=== PATIENT | female | born 1945 | race Caucasian/White ===

== ENCOUNTER 2016-11-10 08:48 | Inpatient (IN) | payer MEDICARE, OTHER ==
[2016-11-10] VITALS (15 sets, daily range): BP systolic 86–113; BP diastolic 42–65; PULSE 55–80; RESP 14–20; O2SAT 94–100
[~2016-11-10] VITALS: Ht 162.6 cm; Wt 89.9 kg
[2016-11-10] MEDS: Lactated Ringer's 1,000 ML IV SCH ×2 (05:00→09:30)
--- NOTE | 2016-11-10 07:29 | PCM.ORTHOP ---
Orthopedic Operative Report Date of Service: Nov 10, 2016 Pre Operative Diagnosis Left shoulder arthritis, pseudoparalysis, rotator cuff tear, biceps tendinitis Post Operative Diagnosis Same Procedure Left reverse total shoulder arthroplasty, open biceps tenodesis Surgeon Surgeon: Hesham Lubin MD Assistants: Geovanny Ferrer Indication for Procedure Left shoulder arthritis, pseudoparalysis Findings Per Dictation Details of Procedure Implant:[employer] Reverse fracture system: size 6 CaP coated humeral stem , smal glenoid baseplate, size 3 humeral insert, size 36+4 mm head, 36+4 glenosphere, central non-locking screw size 6.5X15mm, peripheral locking screw 36 mm, peripheral locking screw 30mm Patient Status: Patient was extubated and taken to recovery room in stable condition. Indications: Taya Kidd is a 72-year-old male right hand dominant with left shoulder pain with pseudoparalysis and glenohumeral arthritis. The patient was offered conservative treatments versus surgical intervention given the severity of the injury and the patient opted for surgery. A clear explanation was given to the patient regarding the condition present, and the available conservative and surgical options. It was emphasized that the risks and benefits of surgery include but are not limited to infection, wound healing problems, damage to adjacent structures such as nerves, blood vessels and tendons, custodial disability and pain, arthritis, hypersensitivity, deep vein thrombosis, pulmonary embolism, broken hardware, failure of surgery, need for further procedures at time of surgery or later, cast related problems, loss of limb or life. The patient was given an explanation and the patient voiced understanding of what to expect after the procedure or surgery, the limitations in activities of daily living, the likely duration for post operative recovery and the instructions that are to be followed. At the end the patient was invited to seek clarification or ask further questions but there were none. The patient voiced understanding of the entire consultation. Description of Procedure: Patient was taken to operating room and transferred to operating table in supine position. Time out was performed with both anesthesia and orthopaedics faculty present to confirm details of case to be performed. After time out performed, patient placed under general anesthesia and endotracheal tube secured into place. Once endotracheal tube secured, the patient was placed into the modified beach-chair position at about 40 degrees of flexion. Patient position was again checked to ensure all bony prominences adequately padded. The left arm was prepped and draped in the usual sterile fashion to the level of the neck. A standard deltopectoral incision was made beginning immediately above the coracoid process and extending distally and laterally. The deltoid muscle was split through the interval being carefully not to release any deltoid along the clavicle or humerus. The proximal one-third of the pectoralis major muscle was incised off the humerus for better exposure. The supraspinatus and infraspinatus muscles were intact and still attached to the fractured greater tuberosity. The subscapularis was intact and also still attached to the fractured lesser tuberosity. It was incised through the tendinous portion just medial to the lesser tuberosity and tagged with 2-0 Fiberwire. The arm was externally rotated to expose the humeral head while the anterior humeral circumflex vessels ("3 sisters") were identified, ligated and then cut protecting the axillary nerve throughout inferior and medial to the vessels. The long head of the biceps was identified along the bicipital groove, incised at its origin and tagged for later tenodesis to the pectoralis major A airline pilot hole was then made with a 4 mm drill through the humeral head along the axis of the humeral shaft just lateral to the head's articular surface and just posterior to the bicipital groove. The 6 mm trochar pointed reamer was then inserted with continued circumferential reaming in 1 mm increments until light cortical contact was achieved with appropriate reamer. The intramedullary resection guide was assembled and the version control jimbo was placed to allow for 30 degrees retroversion. The neck cut was verified with a bat wing. Two threaded Steinmann pins were placed in the resection guide to secure the block to bone and the reamer and guide boom were removed prior to resecting the humeral head with the oscillating saw. We started broaching sequentially and ended with the 6 mm broach which solidly fit in the canal and fully seated on the humerus. The broach cover was then used to protect the humerus while attention was turned to the glenoid. Any remaining labrum was removed from the glenoid along with surrounding osteophytes. The glenoid sizer was centered on the glenoid and a 3.2 mm Steinmann pin was inserted with a 10 degree inferior tilt with solid bone purchase. The glenoid was then reamed with the cannulated base plate reamer over the top of the Steinmann pin until a small bone shelf was evident circumferentially. The cannulated trial glenoid baseplate was placed and fully seated. The glenoid baseplate implant was impacted and fully seated. The 6.5 mm central screw was then inserted following removal of the Steinmann with good compression. The surrounding peripheral screws were then drilled with a 2.7 mm drill through the threaded locking guides and then placed. The glenosphere trial was placed and tested with a good fit. The glenosphere implant was then tamped in place with appropriate offset. The standard humeral tray/bearing were placed and a trial reduction was performed. The patient achieved 80 degrees of external/internal rotation, 110 degrees of abduction, 45 degrees extension and 120 degrees of forward flexion with complete stability. The trail components were removed and the wound was copiously irrigated with 3 liters of normal saline. The stem was inserted followed by impaction of the humeral tray/ bearing. The implant was reduced and once again range of motion was found to be 80 degrees of external/internal rotation, 110 degrees of abduction, 45 degrees extension and 120 degrees of forward flexion with complete stability. The wound was again irrigated. The subscapularis was repaired with drill holes in the humerus prior to implantation of the stem with #2 Fiberwire through previously made bone tunnels. The long head of biceps was tenodesed to the pectoralis major. The deltoid interval was closed with 0 vicryl followed by 2-0 vicryl subcutaneous closure and then stratofix stitches for the skin. Transexamic acid was administered and a local anesthetic cocktail into the skin. Sterile dressings were applied along with a shoulder immobilizer and abduction pillow. The patient was then awoken from anesthesia and extubated, his neurovascular status was intact when checked in PACU. Pt tolerated procedure well and there was no complications. Nonweightbearing to affected upper extremity. Please leave sling on at all times. You may remove sling 3 times a day to move the elbow wrist and fingers. Do not move your shoulder. PROM only, IR to body, ER to 0 degrees, FF to 90 degrees, ABD to 0 degrees. Keep your arm at neutral, NO external rotation of the arm, no resisted IR of the arm. Please keep the affected extremity elevated when possible. You may use ice and/or heat as needed for comfort. Follow-up in 2 weeks with me with 2-view xrays and for suture removal and Steri -Strip application. Follow-up with me at 6 weeks. You will have pain medications , medication for constipation and aspirin 81 qdaily X 2 weeks. Grafts, Implants: Implants-See Implant Record Complications There were no periprocedural complications identified. Condition Stable Anesthetic Administered: GA Catheters: None Output, Estimated Blood Loss: 100 Blood Admin during surgery: No Surgical Cast or Splint: Shoulder Immobilizer Surgical Specimen Removed: No Specimen sent to Pathology: No copies to: Hesham Lubin MD, Christopher L MD Nov 10, 2016 07:29
[~2016-11-10 08:48] MED LIST: ADAL40KI SQ; Bupivacaine Liposome 1.3% 20 mL Inj INFILTRATE ONE; Clindamycin 900 mg/50 mL D5W IV ONE; Gentamicin 40 mg/mL 2 mL Inj IRRIGATION ONE; HYDR25TA4 PO; Hip/Knee Infiltration Cocktail IM ONE; LIP40 PO; LISI-567 PO; MELO-253 PO; OMEP20TA24 PO; PARO40TA3 PO
--- NOTE | 2016-11-10 09:37 | PCM.HPANE ---
Patient Data Surgeon Admitting Provider: Attending Provider:Hesham Lubin MD Primary Care Physician:Omer Nathan DO Other Provider:[facility] Reason for Visit Left Shoulder Arthritis Ht/WT & BMI Height (Feet): 5 Height (Inches): 5.5 Weight (Kilograms): 91.354 Body Mass Index 33.00 Allergies Coded Allergies: Penicillins (Verified Allergy, Severe, THROAT SWELLING, HIVES, 11/05/16) tetracycline (Verified Adverse Reaction, Severe, LIGHT SENSITIVE, 11/05/16) Past Anesthesia History Anesthesia History: Denies:: Anesthesia Reactions, Malignant Hyperthermia Diabetes History Hx Diabetes?: No MRSA MRSA: No Medications Hypertension Medication: Yes (HCTZ,LISINOPRIL) Reported Medications Omeprazole Magnesium (Prilosec Otc)20 Mg Tablet.dr20 Mg PO DAILY #1 PKG Ref 0 11/05/16 Paroxetine 40 Mg Asgklk74 Mg PO HS 30 Days Ref 0 11/05/16 Meloxicam 15 Mg Rpkdhs16 Mg PO DAILY 30 Days Ref 0 11/05/16 Lisinopril 20 Mg Wgfybi82 Mg PO DAILY 30 Days Ref 0 11/05/16 Hydrochlorothiazide 25 Mg Nvkupl10 Mg PO DAILY 30 Days Ref 0 11/05/16 Adalimumab (Humira)40 Mg/0.8 Ml Kit40 Mg SQ Q 2 WEEKS 11/05/16 Atorvastatin (Lipitor)40 Mg Gabhxe25 Mg PO DAILY Ref 0 11/05/16 History History of ENT Problems?: Yes HEENT History: Denies:: Abnormal Airway Cataracts Difficult Intubation Dysphagia Glaucoma Hearing Problem Sinus Problem TMJ Denture Type: None Teeth Condition: Within Normal Limits Other HEENT Pertinent History: HX OF FACIAL (LIPS,NARES,UPPER AIRWAY), RT ARM FRAN[place] 2009 [place] @ [facility] Hx of Heart Problems?: Yes Cardiovascular History: Positive for:: Hypertension (HYPERLIPIDEMIA) Denies:: Heart Murmur Hx of Respiratory Problem?: No Respiratory History: Denies:: Use of C-PAP Machine Hx Neurologic Problems?: Yes Other Neurological Pertinent: C/OF INSOMNIA Hx of GI Problems?: Yes Hx of Problems?: No Female Hx: Positive for:: Problems with Breasts? (S/P BREAST AUGMENTATION) Denies:: Currently (S/P C/S X2) Skin History: Positive for:: History Skin Disorders? (C/OF DRY SKIN, PSORIASIS (ON BIOLOGIC)) Denies:: Pressure Ulcers Hx Musculoskeletal Problems?: Yes Musculoskeletal History: Positive for:: Musculoskeletal Trauma (INTERNAL DERANGEMENT LT SHOULDER=CURRENT PROBLEM) Osteoarthritis (KNEE S/P INJECTIONS) Hx of Psycho/Social Problems?: Yes Psycho Social History: Positive for:: Hx Depression Hx Surgeries?: Yes (C/S X2,RPR RUPT ACHILLES TENDON,BREAST AUGMENTATION) Hx Any Other Health Problems?: Yes Other History: Positive for:: Hospitalization (FRANCO) Denies:: Cancer Endocrine Disease Thyroid Disease Hx Diabetes: No Hx Alcohol Use: YesAlcoholic Drinks Per Day: 3.5OZ/WEEKHx Substance Use: No Have You Smoked inLast 12 mo: No Stop/Bang Treated for Sleep Apnea?: No Do You Have a CPAP Machine?: No S-Snoring: Do You Snore Loudly: No T-Tired: feel tired, fatigued: Yes O-Obsered: Observed not breath: No P-Blood Pressure: treated: Yes B- Body Mass Index > 35 kg/m2: No A- Age over 50: Yes N- Neck Large Circumference: No G- Gender Male: No RAKESH Total Score: 3 RAKESH Risk Assessment: Low Risk, <3 Yes Risk Assessment Category Category 1A: Patient has history of documented sleep apnea, and HAS NOT received any narcotic, sedative or anesthesia administration during this stay. Category 1B: Patient has history of documented sleep apnea, and HAS received any narcotic , sedative or anesthesia administration during this stay Category 2: Patient has SUSPECTED Obstructive Sleep Apnea, and HAS received any narcotic , sedative or anesthesia administration during this stay. Category 3: Patient has SUSPECTED Obstructive Sleep Apnea and HAS NOT received narcotic, sedative or anesthesia administration during this stay. Category 4: Outpatient in Procedural Areas with known sleep apnea or who screen positive for High Risk via the STOP/BANG questionnaire. Exam Exam General Appearance: Oriented X3 HEENT/AIRWAY: MP 2 Lungs: Normal Air Movement Heart: Regular Rate/Rhythm Plan Impression Patient chart reviewed, patient interviewed and anesthestic plan with risks, benefits, and alternatives discussed, and informed consent obtained. ASA Physical Status: ASA2 Mod Systemic Disease Anesthetic Plan: GA, Regional Block Bene/Risks/Altern/Consents: Yes HP Complete Prior to Induction: Yes Donovan Lee MD Nov 10, 2016 09:37
[2016-11-10] MEDS: 0.9% Sodium Chloride 1,000 ML IV SCH ×2 (10:06→22:36)
[2016-11-10] MEDS ORDERED: Sodium Biphos-Phos 133 mL Enema RECTAL PRN (10:10)
[2016-11-10] MEDS ORDERED: Magnesium Hydroxide 10 mL Oral Concentration PO PRN (10:10)
[2016-11-10] MEDS ORDERED: diphenhydrAMINE 25 mg Capsule PO PRN (10:10)
[2016-11-10] MEDS ORDERED: Polyethylene Glycol (PEG) 17 Gm Powder PO PRN (10:10)
[2016-11-10] MEDS ORDERED: Bacitracin 50,000 unit Inj ONE (10:25)
[2016-11-10] MEDS ORDERED: Bupivacaine Liposome 1.3% 20 mL Inj ONE (10:26)
[2016-11-10] MEDS ORDERED: 0.9% Sodium Chloride 200 ML ONE (10:37)
[2016-11-10] MEDS ORDERED: Tranexamic Acid 100 mg/mL 10 mL Inj ONE (10:37)
[2016-11-10] MEDS ORDERED: Bacitracin 50,000 unit Inj IRRIGATION ONE (11:37)
[2016-11-10] MEDS ORDERED: Gentamicin 40 mg/mL 2 mL Inj INJ ONE (11:37)
[2016-11-10] MEDS ORDERED: 0.9% Sodium Chloride 10 mL Inj INFILTRATE ONE (12:31)
[2016-11-10] MEDS ORDERED: Lactated Ringer's 500 ML IV PRN (12:58)
[2016-11-10] MEDS ORDERED: Lactated Ringer's 1,000 ML IV SCH (12:58)
[2016-11-10] MEDS ORDERED: Phenylephrine 10,000 mCg/mL Inj IVPUSH PRN (13:00)
[2016-11-10] MEDS ORDERED: Labetalol 5 mg/mL 4 mL Inj IV PRN (13:00)
[2016-11-10] MEDS ORDERED: Atropine 0.4 mg/mL Inj IVPUSH PRN (13:00)
[2016-11-10] MEDS ORDERED: Dexamethasone 4 mg/mL Inj IVPUSH PRN (13:00)
[2016-11-10] MEDS ORDERED: HYDROmorphone 1 mg/mL Inj IVPUSH PRN (13:00)
[2016-11-10] MEDS ORDERED: EPHEDrine Sulfate 50 mg/mL Inj IVPUSH PRN (13:00)
[2016-11-10] MEDS ORDERED: fentaNYL-PF 50 mCg/mL 2 mL Inj IVPUSH PRN (13:00)
[2016-11-10] MEDS ORDERED: Ondansetron 2 mg/mL 2 mL Inj IVPUSH PRN (13:00)
[2016-11-10] MEDS ORDERED: MetoCLOpramide 5 mg/mL 2 mL Inj IVPUSH PRN (13:00)
[2016-11-10] MEDS ORDERED: hydrALAZINE 20 mg/mL Inj IVPUSH PRN (13:00)
[2016-11-10] MEDS: Ondansetron 2 mg/mL 2 mL Inj IVPUSH PRN (13:06)
[2016-11-10] MEDS: Ketorolac 15 mg/mL Inj IVPUSH PRN ×2 (13:06→19:14)
--- NOTE | 2016-11-10 14:07 | DRSVH ---
PROCEDURE: X-RAY LEFT SHOULDER, MINIMUM TWO VIEWS ([id number]) INDICATIONS: s/p left reverse TSA TECHNIQUE: 2 views of the shoulder were acquired. COMPARISON: None. FINDINGS: Bones: There is a left shoulder reverse polarity arthroplasty. There is expected alignment. No fract ures or dislocations. No suspicious bony lesions. Visualized ribs appear intact. Soft tissues: No suspicious soft tissue calcifications. Possible retrocardiac opacity IMPRESSION: Expected alignment a left shoulder arthroplasty. Consolidative retrocardiac opacity possibly aspiration/atelectasis versus pneumonia. Please correlate clinically and if needed further evaluation with dedicated chest radiographs could be performed Dictated by: Regan Melo M.D. on 11/10/2016 at 14:04 Approved by: Regan Melo M.D. on 11/10/2016 at 14:06
--- NOTE | 2016-11-10 14:24 | PCM.ANEP1 ---
Post Anesthesia PACU Phase 1 Assessment Date of Service: Nov 10, 2016 Vital Signs Vital Signs Date Time Temp Pulse Resp B/P Pulse Ox O2 Delivery O2 Flow Rate FiO2 11/10/16 13:53 36.5 61 90/49 96 Room Air 11/10/16 13:45 64 16 91/50 95 Room Air 11/10/16 13:40 65 17 96/49 96 Room Air 11/10/16 13:35 67 17 95/52 95 Room Air 11/10/16 13:30 36.7 69 18 92/51 96 Room Air 11/10/16 13:25 71 19 93/52 95 Room Air 11/10/16 13:20 69 17 86/42 95 Room Air 11/10/16 13:15 71 15 103/59 94 Room Air 11/10/16 13:10 67 20 88/47 95 Room Air 11/10/16 13:05 72 18 111/57 96 Room Air 11/10/16 13:00 36.3 72 17 106/53 100 Simple Mask 8 11/10/16 10:00 36.2 80 16 113/54 98 Room Air Anesthetic Administered: GA, Regional Block Level of Alertness: Awake, talking RODRÍGUEZ's with Equal Strength: No Pain: No Nausea or Vomiting: Yes CV Function & Hydration Stable: Yes Airway Device: Oxygen Delivery: Room Air Lungs: Normal Air Movement PACU Phase 2 Assessment Complications: No Follow up Care: N/A Patient Instructions Provided: N/A Samuel Salas MD Nov 10, 2016 14:24
[2016-11-10] MEDS ORDERED: Glycopyrrolate 0.2 MG/ML 1mL Inj ONE (14:27)
[2016-11-10] MEDS ORDERED: Propofol 10 mg/mL 20 mL Inj ONE (14:27)
[2016-11-10] MEDS ORDERED: Neostigmine 1 mg/mL 10 mL Inj ONE (14:27)
[2016-11-10] MEDS ORDERED: Ondansetron 2 mg/mL 2 mL Inj ONE (14:27)
[2016-11-10] MEDS ORDERED: Rocuronium 10 mg/mL 5 mL Inj ONE (14:27)
[2016-11-10] MEDS ORDERED: Phenylephrine 10,000 mCg/mL Inj ONE (14:27)
[2016-11-10] MEDS ORDERED: fentaNYL-PF 50 mCg/mL 2 mL Inj ONE (14:27)
--- NOTE | 2016-11-10 14:30 | NUR ---
received to room 1007 from PACU alert, oriented, VSS, denies pain, ortho signs OK, initially c/o nausea but symptom quickly resolved and then she was hungry. dressing c/d/i.
[2016-11-10] MEDS: HYDROcodone-APAP 5-325 mg Tablet PO PRN ×2 (15:49→19:53)
[2016-11-10] MEDS: Senna-Docusate 8.6-50 mg Tablet PO SCH (20:31)
[2016-11-11] MEDS: HYDROcodone-APAP 5-325 mg Tablet PO PRN ×5 (00:02→20:30)
[2016-11-11] MEDS: Ondansetron 2 mg/mL 2 mL Inj IVPUSH PRN ×4 (04:20→22:03)
[2016-11-11 04:59] VITALS: BP 106/65; PULSE 65; RESP 17; O2SAT 97
[2016-11-11 05:15] LABS: BASOPHILS % (AUTO) 0.4 % (0-3); EOSINOPHILS % (AUTO) 1.2 % (0-5); MONOCYTES % (AUTO) 13.4 % (4-12); Mean Corpuscular Hemoglobin 33.8 pg (27.0-35.0); Mean Corpuscular Volume 101.4 fL (81-100); NEUTROPHILS % (AUTO) 70.4 % (40-74); Platelet Count 223 bil/L (150-400)
--- NOTE | 2016-11-11 07:29 | NUR ---
Pain Patient states her pain level has increased over night and wants to try to stay ahead of the pain. Patient asked if she could be woken up when her pain medications are due. Patient A&OX3. Vitals stable. Patient did have one episode of nausea last night shortly after receiving oral pain medication. Zofran 4mg were given and nausea subsided.
[2016-11-11] MEDS: Ketorolac 15 mg/mL Inj IVPUSH PRN ×3 (07:48→20:30)
[2016-11-11] MEDS: Senna-Docusate 8.6-50 mg Tablet PO SCH ×2 (07:52→20:49)
[2016-11-11 09:05] VITALS: BP 100/72; PULSE 64; RESP 17; O2SAT 97
[2016-11-11] MEDS: Pantoprazole 20 mg ER24 Tablet PO SCH (09:39)
[2016-11-11] MEDS: 0.9% Sodium Chloride 1,000 ML IV SCH ×2 (11:06→23:36)
--- NOTE | 2016-11-11 11:29 | NUR ---
Evaluation completed. Please go to "Notes" then click on "Assessments and Notes" (bottom left corner of screen). Then select appropriate discipline tab on top of screen.
--- NOTE | 2016-11-11 12:45 | NUR ---
Social Work- Initial Assessment/ Readiness for Discharge Data: See Initial Assessment. Pt is a 71 year old female admitted for left shoulder arthritis and shoulder replacement per H&P. Pt is POD 1. Pt's NOK is Camille Aviles [phone]. Pt anticipated to discharge later today. Pt's insurance is [employer]. Pt's PCP is Omer Nathan DO. SW met with pt at bedside regarding discharge plan, SW role explained. Pt alert and oriented x3. Pt resides on [address] with her 82 year old roommate where she is independent at baseline. Pt uses no DME at baseline. Pt reports her roommate will assist her at home. Pt has no LTC or VA benefits. Pt is agreeable to outpt PT. Pt to discharge home with no discharge needs at this time. SW will continue to follow. Assessment: Pt who is independent at baseline. Plan: Pt to discharge home with no discharge needs at this time. SW will continue to follow. JIMMIE Brewer Addendum: 11/11/16 at 1252 by PAM HILL SS Amended: Links added.
--- NOTE | 2016-11-11 13:14 | PCM.PNORTH ---
Subjective Date of Service: Nov 11, 2016 Visit Information: Reason for Visit Left Shoulder Arthritis Surgery/Surgery Date LEFT SHOULDER ARTHROPLASTY 11/10/16 Post-Op Day # Date of Admission: Nov 10, 2016 at 14:26 Hospital Day # Subjective Status post day #1 left reverse total shoulder arthroplasty. Patient states her pain is doing well. She has just felt a little nauseated and has felt a little dizzy when she gets up. She did not have any dizziness yesterday when she worked with physical therapy but had a little more this morning. She states that she took her pain medicine on an empty stomach this morning. Postop General: No Shortness of Breath, No Chest Pain Objective Exam Objective Patient is alert and oriented 3. Answering questions appropriately. Patient sitting up in bed today and wearing sling appropriately. Does not appear in acute distress. Dressing is clean dry and intact. Patient able to wiggle fingers, capillary refill less than 3 seconds, radial pulses intact. Vital Signs and I/O Vital Sign - Last Date Time Temp Pulse Resp B/P Pulse Ox O2 Delivery O2 Flow Rate FiO2 11/11/16 09:05 36.4 64 17 100/72 97 Room Air 11/10/16 13:00 8 Intake and Output 11/10/16 11/10/16 11/11/16 Cumulative From/Thru 15:00 23:00 07:00 11/05/16 09:23 - 11/11/16 04:59 Intake Total 1170 ml 800 ml 650 ml 2620 ml Output Total 101 ml 300 ml 400 ml 801 ml Balance 1069 ml 500 ml 250 ml 1819 ml Intake Oral 800 ml 650 ml 1450 ml IV Total 1170 ml 1170 ml Output Urine Total 300 ml 400 ml 700 ml Estimated Blood Loss 101 ml 101 ml # Bowel Movements 0 0 0 Lab & Micro Results Laboratory Tests Test 11/11/16 04:56 White Blood Count 7.8th/mm3 (3.8-10.1) Red Blood Count 3.67mil/mm3 (3.90-5.20) Hemoglobin 12.4g/dL (12.0-15.6) Hematocrit 37.2% (35.0-46.0) Mean Corpuscular Volume 101.4fL (81-100) Mean Corpuscular Hemoglobin 33.8pg (27.0-35.0) Mean Corpuscular Hemoglobin Concent 33.3% (32.0-37.0) Red Cell Distribution Width 12.5% (12.3-15.4) Platelet Count 223bil/L (150-400) Neutrophils (%) (Auto) 70.4% (40-74) Lymphocytes (%) (Auto) 14.3% (14-46) Monocytes (%) (Auto) 13.4% (4-12) Eosinophils (%) (Auto) 1.2% (0-5) Basophils (%) (Auto) 0.4% (0-3) Result Diagram: 11/11/16 0456 Catheters: None Assessment & Plan Impression Status post day #1 left reverse total shoulder arthroplasty. Patient doing well with some mild stated dizziness. Did well with physical therapy but recommendation is to work with her once more this afternoon. Problems: Plan Patient will work one more time this afternoon with physical therapy and as long as she is not having dizziness she will be able to go home today. Recommend that patient eat meals sitting up, spend rest of day sitting up in bedside chair or bed. Nurses will notify if has any more residual symptoms of dizziness, patient will be sent home with Zofran today for nausea. Patient will remain nonweightbearing to left upper extremity. Do not lift or use the left arm. Keep your arm in the sling at all times except to remove 3 times a day to gently move your elbow and hand as was demonstrated to him today. Keep dressing clean and dry for 3 days, then you may remove the dressing and apply a new one. We prefer you to keep this dry and clean until you are seen in our office at 2 weeks. You may shower after 3 days and try to keep the dressing dry, if this gets wet please remove and apply a clean dressing. We will discharge her with pain medicine to take every 4-6 hours if needed for pain. She will take aspirin 81 mg by mouth daily 14 days. Patient will be discharged with Zofran for nausea as well. Follow-up at [facility] at 2 weeks for your postoperative appointment. Please call us if there are any problems between now and then. Geovanny Ferrer PA-C Nov 11, 2016 13:14
--- NOTE | 2016-11-11 13:15 | PCM.DIORTH ---
Ortho Discharge Instruction Date of Service: Nov 11, 2016 Dates of Hospitalization Date of Hospital Admission Nov 10, 2016 at 14:26 Providers Admitting Physician: Hesham Lubin MD Primary Care Physician: Omer Nathan DO Attending Physician: Hesham Lubin MD Diet Discharge Diet: No restrictions Activity Left Upper Extremity: Non-weight bearing Additional Instructions Discharge Instructions Patient will remain nonweightbearing to left upper extremity. Do not lift or use the left arm. Keep your arm in the sling at all times except to remove 3 times a day to gently move your elbow and hand as was demonstrated to him today. Keep dressing clean and dry for 3 days, then you may remove the dressing and apply a new one. We prefer you to keep this dry and clean until you are seen in our office at 2 weeks. You may shower after 3 days and try to keep the dressing dry, if this gets wet please remove and apply a clean dressing. We will discharge her with pain medicine to take every 4-6 hours if needed for pain. She will take aspirin 81 mg by mouth daily 14 days. Patient will be discharged with Zofran for nausea as well. Follow-up at [facility] at 2 weeks for your postoperative appointment. Please call us if there are any problems between now and then. Geovanny Ferrer PA-C Nov 11, 2016 13:15
[2016-11-11] MEDS ORDERED: ONDA4TAB12 PO (13:17)
--- NOTE | 2016-11-11 13:19 | PCM.DC.ORT ---
Discharge Summary Date of Service: Nov 11, 2016 Date of Hospital Admission: Nov 10, 2016 at 14:26 Date of Surgery: Nov 10, 2016 Date of Discharge: Nov 11, 2016 Reason for Hospitalization: Left shoulder osteoarthritis Procedures Performed: Left reverse total shoulder arthroplasty Hospital Course: Patient presented to [facility] surgical suite for the procedure of left reverse total shoulder arthroplasty by Dr. Hesham Lubin on 11/10/2016. Patient was prepped for surgery and the procedure was performed successfully, patient was discharged to PACU under stable condition, tolerated the procedure well. Once stabilized in PACU and pain well controlled, patient was admitted to the hospital floor for observation, pain control, and progression with physical therapy. The first day the patient was able to resume a regular diet, void on their own, not having any problems with nausea or vomiting. The patient did not have any adverse falls, reactions, or events were all in the hospital. The patient began working with physical therapy on day one then progressed quite well with reasonable pain control. On day 1 the patient was able to ambulate safely on their own, and pain was controlled sufficiently to be discharged to home. We will utilize aspirin 81 mg by mouth for 2 weeks for DVT prophylaxis. The patient was discharged to home under stable condition with plan to follow- up with patient at 2 weeks for a postoperative appointment. Diagnosis at Time of Discharge Status post left reverse total shoulder arthroplasty Problems: Discharge Instructions: Patient will remain nonweightbearing to left upper extremity. Do not lift or use the left arm. Keep your arm in the sling at all times except to remove 3 times a day to gently move your elbow and hand as was demonstrated to him today. Keep dressing clean and dry for 3 days, then you may remove the dressing and apply a new one. We prefer you to keep this dry and clean until you are seen in our office at 2 weeks. You may shower after 3 days and try to keep the dressing dry, if this gets wet please remove and apply a clean dressing. We will discharge her with pain medicine to take every 4-6 hours if needed for pain. She will take aspirin 81 mg by mouth daily 14 days. Patient will be discharged with Zofran for nausea as well. Follow-up at [facility] at 2 weeks for your postoperative appointment. Please call us if there are any problems between now and then. Adalimumab (Humira) 40 Mg/0.8 Ml Kit 40 MG SQ Q 2 WEEKS Atorvastatin (Lipitor) 40 Mg Tablet 40 MG PO DAILY Hydrochlorothiazide (Hydrochlorothiazide) 25 Mg Tablet 25 MG PO DAILY Lisinopril (Lisinopril) 20 Mg Tablet 20 MG PO DAILY Meloxicam (Meloxicam) 15 Mg Tablet 15 MG PO DAILY Omeprazole Magnesium (Prilosec Otc) 20 Mg Tablet.dr 20 MG PO DAILY Ondansetron ODT (Ondansetron ODT) 4 Mg Tab.rapdis 8 MG PO Q6H PRN PRN For Nausea /Vomiting Paroxetine (Paroxetine) 40 Mg Tablet 40 MG PO HS Geovanny Ferrer PA-C Nov 11, 2016 13:19
[2016-11-11 16:35] VITALS: BP 117/74; PULSE 70; RESP 19; O2SAT 94
--- NOTE | 2016-11-11 19:28 | NUR ---
nausea/vomiting/vertigo pt was unable to discharge home today because every time she got up to walk she would have vertigo/dizziness and then she would start vomiting. She vomited 3-4 times throughout the shift. CORY Gonzalez was notified and he put the discharge on hold.
[2016-11-11 20:31] VITALS: BP 113/60; PULSE 81; RESP 17; O2SAT 97
--- NOTE | 2016-11-11 23:08 | NUR ---
Pain/dizziness C?o left shoulder incisional pain 10/30. States morphine wasn't really helpful. Given Vicodin and Toradol. Pain level decreased to "0". Neuros intact. Up to bathroom with standby assist. C/o vertigo when up, stating that the room was spinning, and had nausea by the time she got back to bed. Medicated with Zofran after getting back to bed and this was effective. Discussed not getting up without calling for assistance and bed alarm on for safety.
[2016-11-12] MEDS: HYDROcodone-APAP 5-325 mg Tablet PO PRN ×2 (01:47→05:52)
[2016-11-12 05:25] VITALS: BP 99/62; PULSE 72; RESP 18; O2SAT 96
[2016-11-12] MEDS: Pantoprazole 20 mg ER24 Tablet PO SCH (05:51)
--- NOTE | 2016-11-12 07:21 | NUR ---
vertigo/pain had 3 episodes of severe vertigo last night, occurring when getting up out of bed. She states she's fine as long as she's lying down. Vertigo is accompanied by headache and nausea. Zofran and lying back down were effective in treating this. C/o incisional givens 4-10/30 that was relieved with [place] and Toradol. observing mobility precautions with left shoulder in immobilizer. Dressing is dry and intact, and has kept ice on this for comfort. Report to gio SORTO.
--- NOTE | 2016-11-12 08:02 | PCM.PNORTH ---
Subjective Date of Service: Nov 12, 2016 Visit Information: Reason for Visit Left Shoulder Arthritis Surgery/Surgery Date LEFT SHOULDER ARTHROPLASTY 11/10/16 Post-Op Day # Date of Admission: Nov 10, 2016 at 14:26 Hospital Day # Subjective Found patient resting comfortably in bed with head of bed raised. No complaints of pain at this time and no complaint of nausea or dizziness or headache. Discussed patient's case with her at some length this morning as well as with nursing. Patient and her nurse both indicate that as soon as patient attempts to arise she becomes nauseous and dizzy and has a severe headache. Patient is currently on gabapentin, [place] 52, Toradol IV and MS IV as needed. All his medications are things that she does not typically take. She is also hypotensive following around systolic 100. Her H&H is well above transfusion will limits. I discussed with nurse and patient today that we will try to discontinue these medications that she is currently on including gabapentin, [place], Toradol and morphine and place her on simple oxycodone 5 mg 1 -2 every 4-6 by mouth in an effort to rule out reactions to medications. We will also establish a 500 mg normal saline bolus today through a new IV line which would placement a nurse. Nursing has agreed and put these orders. Patient indicates she lives with an 82-year-old female who will be unable to perform any significant caregiving. Postop General: No Shortness of Breath, No Chest Pain Pain Management: PO, IV Push Objective Exam Objective Alert and oriented 3 and pleasant. Left arm remains in a shoulder immobilizer and in good position. Finger wiggle and sensation are intact that left upper extremity distally. Vital Signs and I/O Vital Sign - Last Date Time Temp Pulse Resp B/P Pulse Ox O2 Delivery O2 Flow Rate FiO2 11/12/16 05:25 36.4 72 18 99/62 96 Room Air 11/10/16 13:00 8 Intake and Output 11/11/16 11/11/16 11/12/16 Cumulative From/Thru 15:00 23:00 07:00 11/05/16 09:23 - 11/12/16 05:25 Intake Total 1240 ml 440 ml 4300 ml Output Total 1200 ml 650 ml 2651 ml Balance 40 ml -210 ml 1649 ml Intake Oral 1240 ml 440 ml 3130 ml IV Total 1170 ml Output Urine Total 1000 ml 650 ml 2350 ml Emesis 200 ml 200 ml Estimated Blood Loss 101 ml # Bowel Movements 0 0 Result Diagram: 11/11/16 0456 General Appearance: Alert, Oriented X3, Cooperative, No Acute Distress Postop Sensory Motor: Distal Motor Intact, Movement in Fingers, Distal Sensation Intact Catheters: None Assessment & Plan Plan Postop day #2 from left reverse total shoulder arthroplasty performed on [address] Hesham Lubin. Continue nonweightbearing of the left upper extremity using shoulder immobilizer type of arm sling . Patient should come out of sling 3 times a day for active elbow wrist and hand and finger motion only. Left shoulder passive range of motion only: IR to the body, ER 20 with no external rotation of the shoulder, FF to 90. Ice and/or heat as appropriate and elevate arm if possible. Continue ASA 81 mg daily 2 weeks postop. Follow-up in 2 weeks at [facility] orthopedic clinic with Dr. Hesham Lubin with two-view x-rays of the shoulder on arrival and removal of sutures with placement of Steri-Strips. Follow-up in 6 weeks at [facility] orthopedic clinic with Dr. Hesham Lubin. Patient is having significant issues with vertigo, nausea and vomiting and headache when she is upright. Nursing advises me that they have gotten her up to the bathroom this morning and she experienced significant vertigo and loss of balance, nausea and vomiting. We have made a complete change on patient's pain medications and will add a 500 mg NS IV bolus for hypotension this morning in an effort to improve her condition. Nursing please discontinue gabapentin, [place] 52, Toradol IV and MS IV. Nursing please start Roxicodone 5 mg by mouth 1-2 every 4-6 and Tylenol 975 mg every 8 for pain. We have placed patient on Roxicodone 1-2 every 4-6 hours when necessary pain and Tylenol 975 mg every 8 hours for pain. Physical therapy will see patient this morning and attempted Bal and or [place] Hallpike maneuvers. This plan of action has been discussed with the patient's nurse and he has agreed to implement these plans. This plan of action has been discussed with Dr. Hesham Lubin at approximately 0700 hrs. this morning and he is in agreement with this. I have asked nursing to contact me regarding patient's condition if there is any change for the better or worse. Anticipate discharge today to home if patient is improved. Addendum 1600H Physical therapy has seen patient today and performed [place] Hallpike maneuver without success. Patient continues to be nauseous and dangerously unstable with vertigo type symptoms on standing and weightbearing. Medication changes implemented this morning as well as fluid bolus do not appear to have changed this patient's condition for the better. I have asked a hospitalists to consult this patient for workup of her condition. Patient will not be discharging today and discharge date is unknown at this time. Matthew Yu PA-C Nov 12, 2016 08:02
--- NOTE | 2016-11-12 08:22 | PCM.PNORTH ---
Subjective Date of Service: Nov 12, 2016 Visit Information: Reason for Visit Left Shoulder Arthritis Surgery/Surgery Date LEFT SHOULDER ARTHROPLASTY 11/10/16 Post-Op Day # Date of Admission: Nov 10, 2016 at 14:26 Hospital Day # Postop General: No Complaints, No Shortness of Breath, No Chest Pain Pain Management: PO, IV Push Objective Exam Vital Signs and I/O Vital Sign - Last Date Time Temp Pulse Resp B/P Pulse Ox O2 Delivery O2 Flow Rate FiO2 11/12/16 05:25 36.4 72 18 99/62 96 Room Air 11/10/16 13:00 8 Intake and Output 11/11/16 11/11/16 11/12/16 Cumulative From/Thru 15:00 23:00 07:00 11/05/16 09:23 - 11/12/16 05:25 Intake Total 1240 ml 440 ml 4300 ml Output Total 1200 ml 650 ml 2651 ml Balance 40 ml -210 ml 1649 ml Intake Oral 1240 ml 440 ml 3130 ml IV Total 1170 ml Output Urine Total 1000 ml 650 ml 2350 ml Emesis 200 ml 200 ml Estimated Blood Loss 101 ml # Bowel Movements 0 0 Result Diagram: 11/11/16 0456 General Appearance: Cooperative, No Acute Distress Extremities: No Compartment Syndrom Noted (no compartment syndrome noted at left upper or lower extremity.), Thigh & Calf Soft/Nontender Postop Sensory Motor: Movement in Toes, Movement in Fingers (finger we will is intact that left upper extremity distally), Distal Sensation Intact (distal sensation is intact at the left lower extremity and left upper extremity distally) Catheters: None Matthew Yu PA-C Nov 12, 2016 08:22 Postop Sensory Motor: Movement in Toes, Movement in Fingers (finger we will is intact that left upper extremity distally), Distal Sensation Intact (distal sensation is intact at the left lower extremity and left upper extremity distally) Catheters: None Matthew Yu PA-C Nov 12, 2016 08:22 intact that left upper extremity distally), Distal Sensation Intact (distal sensation is intact at the left lower extremity and left upper extremity distally) Catheters: None Assessment & Plan Plan Postop day #3 from left hip hemiarthroplasty performed on 11/09/2016. Patient will remain nonweightbearing to left upper extremity. Do not lift or use the left arm. Keep your arm in the sling at all times except to remove 3 times a day to gently move your elbow and hand as was demonstrated to him today. Keep dressing clean and dry for 3 days, then you may remove the dressing and apply a new one. We prefer you to keep this dry and clean until you are seen in our office at 2 weeks. You may shower after 3 days and try to keep the dressing dry, if this gets wet please remove and apply a clean dressing. We will discharge her with pain medicine to take every 4-6 hours if needed for pain. She will take aspirin 81 mg by mouth daily 14 days. Patient will be discharged with Zofran for nausea as well. Matthew Yu PA-C Nov 12, 2016 08:22
[2016-11-12] MEDS: Senna-Docusate 8.6-50 mg Tablet PO SCH ×2 (08:57→20:05)
[2016-11-12] MEDS ORDERED: 0.9% Sodium Chloride 500 ML IV ONE (09:35)
[2016-11-12] MEDS: Ondansetron 2 mg/mL 2 mL Inj IVPUSH PRN ×2 (11:08→20:05)
[2016-11-12] MEDS: 0.9% Sodium Chloride 1,000 ML IV SCH ×2 (12:24→15:50)
--- NOTE | 2016-11-12 14:05 | NUR ---
Social Work: Readiness for Discharge D: EMR reviewed. Pt is on day 2 of hospitalization. SW received MD order for PT 2x/week. SW met with pt to discuss home health and determine whether or not pt will be homebound after discharge. Pt states she will not be able to drive or leave her home during her recovery without a great deal of assistance (she states she won't be able to drive). Pt states she will be homebound. SW provided pt with HH choice list. Pt chose [facility]. SW confirmed that [facility] does not cover [place]. SW discussed agencies that do cover [place] and pt chose [facility]. SW placed T/C to ortho PA to confirm that pt will need F2F completed prior to discharge. SW confirmed with ortho that F2F is in pt's chart under physicians orders and has orange flag identifying ppw. Ortho stated they are attempting to assign a hospitalist to the pt. SW to update hospitalist on F2F. Per ortho and MD, pt will likely discharge tomorrow pending pt's nausea and dizziness. JOSHUA will placed referral to [facility] and follow-up with MD or ortho for F2F A: Pt who whom PT 2x/week has been deemed medically necessary. P: SW to place referral to [facility] for PT 2x/week, provide access, and fax F2F once completed. JOSHUA will continue to follow. JIMMIE Patricia Addendum: 11/12/16 at 1603 by KYM CAPONE SS JOSHUA placed referral to [facility]. Aleah from [facility] retrieved completed F2F, SW provided access, and Aleah informed pt will discharge tomorrow.
[2016-11-12 15:04] VITALS: BP_SYST 106; BP_SYST 118; BP_DIAS 58; BP_DIAS 66; BP_DIAS 70; RESP 20; O2SAT 95
--- NOTE | 2016-11-12 15:31 | PCM.CHPMED ---
Subjective Date of Service: Nov 12, 2016 Primary Physician: Admitting Physician: Hesham Lubin MD Primary Care Physician: Omer Nathan DO Attending Physician: Hesham Lubin MD Chief Complaint: Chief Complaint: Postural dizziness History of Present Illness: 71yo female with hypertension on ACEI, psoriasis on biweekly Humira, patient underwent left shoulder arthroplasty by 11/10. Hospitalist was consulted for new onset dizziness patient developed this morning. As per pt, pt never had any dizziness with positional changes. As per orthopedic service, since patient has surgery, every time she got up or standing up, patient fell mild dizzy as if she is falling, 's morning patient also became nauseous and dizzy with severe headache. Patient was noted to have hypotension around systolic 100. It was thought to be pain regimen including gabapentin, [place], Toradol and morphine, because of this episode. Patient received 500-1 L bolus, the regimen was switched to OxyContin 5mg 1-2tab q4 prn. During the interview, patient denied feeling dizziness while she was laying down , when she had an episode this morning, patient denied any focal weakness on her extremities, swallowing difficulties, speech difficulties. Patient denied having heart disease or arrhythmias or stroke in the past. Patient also denies difficulty breathing, blurry vision, tinnitus with dizziness. pt stated that BP usually runs 140-150s never [id number] like this morning. At the moment, pt c/o mild shoulder pain 5/10, controlled with Oxycodone ROS: Pertinent positives as noted in history of present illness. All other systems were reviewed and are negative Current meds Tylenol 975mg prn zofran 4-8mg q4h prn colace 100 bid Senna 100 bid aspirin 81mg daily pantoprazole 20mg daily Oxycodone 5-10mg q4h prn PMH as described above in history of present illness PSH no major surgeries allergy: PCN during , developed leg swelling FH no hx of CAD SH no smoking, etoh, drugs EXAM NAD, comfortably laying down on the bed no JVD, MMM, no LAD RRR, nl s1, s2 no mrg CTAB, no w,c S,ND,NT,normoactive BS+ warm, no edema, pulses 2/2 left shoulder sling a/p 71-year-old female with hypertension, psoriasis, no baseline autonomic neuropathy developed postural dizziness in acute postop course. Postural dizziness, likely multifactorial: Given his low blood pressure different from her baseline, this is most likely related to her current presentation. Hypertension is likely due to multiple opioids, probable blood loss from surgery and anesthesia as well. Patient did not show any symptoms or signs of stroke. Risks of CVA is also minimal. -esteban get orthostatic v/s -hold off on resuming home bp meds, continue IVF 100cc/hr NS -agreed on pain regimen Oxycodone, avoid other iv opioid for control -hospitalist will continue to follow PMH Allergies: Coded Allergies: Penicillins (Verified Allergy, Severe, THROAT SWELLING, HIVES, 11/05/16) tetracycline (Verified Adverse Reaction, Severe, LIGHT SENSITIVE, 11/05/16) Social History Hx Alcohol Use: YesAlcoholic Drinks Per Day: [id number] Substance Use: No Exam Vital Signs Vital Sign - Last Date Time Temp Pulse Resp B/P Pulse Ox O2 Delivery O2 Flow Rate FiO2 11/12/16 05:25 36.4 72 18 99/62 96 Room Air 11/10/16 13:00 8 Intake and Output 11/11/16 11/11/16 11/12/16 Cumulative From/Thru 15:00 23:00 07:00 11/05/16 09:23 - 11/12/16 05:25 Intake Total 1240 ml 440 ml 4300 ml Output Total 1200 ml 650 ml 2651 ml Balance 40 ml -210 ml 1649 ml Intake Oral 1240 ml 440 ml 3130 ml IV Total 1170 ml Output Urine Total 1000 ml 650 ml 2350 ml Emesis 200 ml 200 ml Estimated Blood Loss 101 ml # Bowel Movements 0 0 Lab and Diagnostics Result Diagram: 11/11/16 0456 Assessment & Plan VTE Mechanical Devices: Intermittant Pneumatic CD Marlyn Bruner MD Nov 12, 2016 15:31
--- NOTE | 2016-11-12 16:03 | NUR ---
JOSHUA placed referral to [facility]. Aleah from [facility] retrieved completed F2F, JOSHUA provided access, and Aleah informed pt will discharge tomorrow.
--- NOTE | 2016-11-12 18:25 | NUR ---
vertigo/Nausea/Vomiting Cardiac: Pt denies CP, HR 70s Resp: Pt denies SOB, SPO2 high 90s on RA. GI/: Pt had N/V associated with vertigo this shift. Zofran given this AM with good effect. Pt reports less nausea as the shift progressed. Had episode of heart burn while eating dinner, Milk of Magnesia given, heart burn abated. Scheduled bowel meds given, no BM this Shift. Neuro: A&Ox3, pt has significant vertigo with mobilization. Pt reports it is worse if she looks left. This morning pt ambulated with nurse to BR and was unsteady on her feet and had episode of emesis while on the toilet. pt reported decrease in vertigo late in shift, but still present.
[2016-11-12 19:40] VITALS: BP 106/65; PULSE 92; RESP 17; O2SAT 98
[2016-11-13] MEDS: 0.9% Sodium Chloride 1,000 ML IV SCH ×4 (00:36→23:22)
[2016-11-13] MEDS: Ondansetron 2 mg/mL 2 mL Inj IVPUSH PRN (01:38)
--- NOTE | 2016-11-13 04:22 | NUR ---
PAIN Pt reports new onset deep bone pain in upper left shoulder, started 11/12/16. She says this pain is different from the pain immediately post-op, describes as "really deep in my shoulder, like my bone." Pt receiving 10 mg Roxicodone q4h with supplemental Tylenol, effective previously. Told pt would pass this on to day shift and for her to bring up in morning rounds with her doctor, pt aware and complying.
[2016-11-13] MEDS: Pantoprazole 20 mg ER24 Tablet PO SCH (05:51)
[2016-11-13 05:58] VITALS: BP 101/63; PULSE 85; RESP 17; O2SAT 98
--- NOTE | 2016-11-13 07:53 | PCM.PNORTH ---
Subjective Date of Service: Nov 13, 2016 Visit Information: Reason for Visit Left Shoulder Arthritis Surgery/Surgery Date LEFT SHOULDER ARTHROPLASTY 11/10/16 Post-Op Day # Date of Admission: Nov 10, 2016 at 14:26 Hospital Day # Subjective Found patient awake and alert this morning with head of bed elevated. No complaints of pain. Patient does indicate she continues to have significant nausea and dizziness when she is up and about. She states she is concerned about going home and feels that she could fall. She indicates that she does do somewhat better when she sits on the edge of the bed for a period of time to get her balance but she is still having her essential problem with balance and nausea. Patient is otherwise pleasant alert and willing and physically able. Postop General: No Shortness of Breath, No Chest Pain, Good Appetite Pain Management: PO Objective Exam Objective Alert and oriented 3 and pleasant Mood appropriate Interoperative dressing is intact and patient remains in her shoulder immobilizer with abduction pillow. No compartment syndrome is noted Finger wiggle and sensation are intact at left lower extremity distally Patient has undergone Astatula- Hallpike maneuver with physical therapy yesterday without successfully treating her dizziness. Vital Signs and I/O Vital Sign - Last Date Time Temp Pulse Resp B/P Pulse Ox O2 Delivery O2 Flow Rate FiO2 11/13/16 05:58 36.7 85 17 101/63 98 Room Air 11/10/16 13:00 8 Intake and Output 11/12/16 11/12/16 11/13/16 Cumulative From/Thru 15:00 23:00 07:00 11/05/16 09:23 - 11/13/16 05:58 Intake Total 1240 ml 1733 ml 7273 ml Output Total 400 ml 750 ml 3801 ml Balance 840 ml 983 ml 3472 ml Intake Oral 840 ml 1450 ml 5420 ml IV Total 400 ml 283 ml 1853 ml Output Urine Total 400 ml 750 ml 3500 ml Emesis 200 ml Estimated Blood Loss 101 ml # Bowel Movements 1 1 Result Diagram: 11/11/16 0456 General Appearance: Alert, Oriented X3, Cooperative, No Acute Distress Extremities: No Compartment Syndrom Noted Postop Sensory Motor: Distal Motor Intact, Movement in Fingers, Distal Sensation Intact Catheters: None Assessment & Plan Impression Patient is a very pleasant, talkative and alert female who was quite active physically prior to this hospitalization. She is 3 days status post left reverse total shoulder arthroplasty and she continues to have difficulty with vertigo type symptoms including dizziness, room spinning, nausea and vomiting and headache when she is upright. When patient is lying in bed she does not have the symptoms. Orthopedics has provided changes in medication, fluid and ask physical therapy to investigate patient for vertigo and all of these have yielded no results. We have asked hospitalist service to consult on this patient yesterday on 11/12/2016 in an effort to ferret out the reason for her symptoms. At this time we have all been unsuccessful. I believe patient is unsafe for discharge and is a significant fall risk at this time. Problems: Plan Postop day #3 from left reverse total shoulder arthroplasty performed on [address] Hesham Lubin. Continue nonweightbearing of the left upper extremity using shoulder immobilizer type of arm sling . Patient should come out of sling 3 times a day for active elbow wrist and hand and finger motion only. Left shoulder passive range of motion only: IR to the body, ER 0 with no external rotation of the shoulder, FF to 90. Ice and/or heat as appropriate and elevate arm if possible. Continue ASA 81 mg daily 2 weeks postop. Continue Roxicodone 1-2 tablets every 4-6 hours when necessary pain and Tylenol 975 mg every 8h for pain. Patient continues to have significant issues with vertigo, nausea and vomiting and headache when she is upright. I believe she is a fall risk and I believe she is not suited for discharge to home at this time. I will speak with geriatric social worker today regarding possible discharge to care home facility. We have removed excessive INVESTIGATOR depressant medications and placed patient on a shorter list of pain medication. We have also administered fluid and neither one of these have been helpful. A Senait- Hallpike maneuver has been performed by formal physical therapy and this has also been of no help. Patient continues to be borderline hypotensive when by her indication and on review of her home meds she is apparently somewhat hypertensive at baseline. I have asked nursing to contact me regarding patient's condition if there is any change for the better or worse. I have ask hospitalist service to consult on this patient yesterday on 2016. I spoke with Dr. Jensen from internal medicine this morning and explained the situation to him and asked him if he would see this patient this morning for evaluation. I have also discussed with him the possible use of meclizine and Ativan. Dr. Jensen has indicated he is considering an MRI to investigate possible central nervous system causes for her condition. Follow-up in 2 weeks at [facility] orthopedic clinic with Dr. Hesham Lubin with two-view x-rays of the shoulder on arrival and removal of sutures with placement of Steri-Strips. Follow-up in 6 weeks at [facility] orthopedic clinic with Dr. Hesham Lubin. Anticipate discharge as soon as possible when patient is medically stable and safe for discharge.. VTE Prophylaxis: SCDs (bilateral SCDs), Other (ASA 81 mg daily 2 weeks postop) Matthew Yu PA-C Nov 13, 2016 07:53
[2016-11-13 09:05] LABS: BASOPHILS % (AUTO) 0.4 % (0-3); EOSINOPHILS % (AUTO) 1.9 % (0-5); MONOCYTES % (AUTO) 10.5 % (4-12); Mean Corpuscular Hemoglobin 33.8 pg (27.0-35.0); Mean Corpuscular Volume 101.7 fL (81-100); Platelet Count 239 bil/L (150-400)
[2016-11-13] MEDS: Senna-Docusate 8.6-50 mg Tablet PO SCH ×2 (09:17→19:35)
[2016-11-13 09:40] LABS: Magnesium 3.1 mg/dL (1.6-2.6)
[2016-11-13 10:09] VITALS: BP 104/65; PULSE 80; RESP 18; O2SAT 98
--- NOTE | 2016-11-13 13:44 | NUR ---
Off Unit Patient off floor to MRI via W/C.
--- NOTE | 2016-11-13 14:19 | NUR ---
Pain Patient reported 5/10 shoulder pain. 975mg of acetaminophen given. Denies nausea. Patient repositions self for comfort. Call light and tray table within reach. Will continue to monitor patient hourly.
[2016-11-13 19:29] VITALS: BP 115/66; PULSE 75; RESP 18; O2SAT 97
--- NOTE | 2016-11-13 21:20 | PCM.PNMED ---
Subjective Date of Service Nov 13, 2016 Subjective Patient complains of vertigo when standing especially when she turns her head to the left. She is having a difficult time functioning and getting out of bed on her own due to this problem. Exam Vital Signs Vital Sign - Last Date Time Temp Pulse Resp B/P Pulse Ox O2 Delivery O2 Flow Rate FiO2 11/13/16 19:29 36.8 75 18 115/66 97 Room Air 11/10/16 13:00 8 Intake and Output 11/12/16 11/12/16 11/13/16 Cumulative From/Thru 15:00 23:00 07:00 11/05/16 09:23 - 11/13/16 05:58 Intake Total 1240 ml 1733 ml 7273 ml Output Total 400 ml 750 ml 3801 ml Balance 840 ml 983 ml 3472 ml Intake Oral 840 ml 1450 ml 5420 ml IV Total 400 ml 283 ml 1853 ml Output Urine Total 400 ml 750 ml 3500 ml Emesis 200 ml Estimated Blood Loss 101 ml # Bowel Movements 1 1 Exam General: Patient is comfortable resting supine in bed. However, when getting up she has vertigo and is unstable according to physical therapy. HEENT: Head is atraumatic and normocephalic. Eyes: Pupils are equally round and reactive to light and accommodation. Extraocular muscles are intact. Sclera are white, anicteric. Subconjunctival mucosa is pink. Ears and nose are unremarkable. Oropharynx: There is no mucosal lesions, there is no thrush, there is no pharyngitis. Neck: Is supple, there are no nodes, or masses or tenderness. Chest: Is clear to auscultation and percussion. There are no rales, rhonchi, wheezes or rubs. Heart: Rate, rhythm is regular. There is no new murmur, rub or gallop. Abdomen: Good bowel sounds are present. Abdomen is obese, soft, nontender, no organomegaly or masses were appreciated. Extremities: The left shoulder dressing is clean dry and intact and the left upper extremity is in a postoperative sling. There is no edema, there is no cellulitis, no rash. Neurologic: There are no focal neurological deficits. Cranial nerves II through XII are intact. There are no sensory or motor deficits. However, when patient is up ambulating with physical therapist assisting the patient the physical therapist believes the patient is "at high risk for falls". Psychiatric: Patients mood is calm and she shows no sign of agitation. Genital: Deferred Rectal: Deferred Lab and Diagnostics Result Diagram: 11/13/16 0850 11/13/16 0850 X-Rays, CTs and MRIs PROCEDURE: X-RAY LEFT SHOULDER, MINIMUM TWO VIEWS ([id number]) INDICATIONS: s/p left reverse TSA TECHNIQUE: 2 views of the shoulder were acquired. COMPARISON: None. FINDINGS: Bones: There is a left shoulder reverse polarity arthroplasty. There is expected alignment. No fractures or dislocations. No suspicious bony lesions. Visualized ribs appear intact. Soft tissues: No suspicious soft tissue calcifications. Possible retrocardiac opacity IMPRESSION: Expected alignment a left shoulder arthroplasty. Consolidative retrocardiac opacity possibly aspiration/atelectasis versus pneumonia. Please correlate clinically and if needed further evaluation with dedicated chest radiographs could be performed Dictated by: Regan Melo M.D. on 11/10/2016 at 14:04 Approved by: Regan Melo M.D. on 11/10/2016 at 14:06 Assessment & Plan The patient is a pleasant 71yo white female with hypertension on ACEI, psoriasis on biweekly Humira, patient underwent left shoulder arthroplasty by 11/10. The Hospitalist team was consulted for new onset vertigo that the patient developed postoperatively. # .Postop day #3 from left reverse total shoulder arthroplasty performed on by Dr. Hesham Lubin. As per orthopedic surgery: "Continue nonweightbearing of the left upper extremity using shoulder immobilizer type of arm sling . Patient should come out of sling 3 times a day for active elbow wrist and hand and finger motion only. Left shoulder passive range of motion only: IR to the body, ER 0 with no external rotation of the shoulder, FF to 90. Ice and/or heat as appropriate and elevate arm if possible. Continue ASA 81 mg daily 2 weeks postop. Continue Roxicodone 1-2 tablets every 4-6 hours when necessary pain and Tylenol 975 mg every 8h for pain." # Vertigo, postoperatively. Active - Possibly secondary to a combination of hypotension and postoperative analgesics. - Possibly a complication of anesthesia - Possibly due to benign positional vertigo. However, the Senait Hallpike test performed by PT was inconclusive. - MRI was ordered for a cerebellar cerebrovascular accident. However, the patient could not fit in the MRI machine. - We will check CT scan of the brain in a.m. to look for cerebellar cerebrovascular accident - We will continue IV fluids - We will start Meclizine when necessary # History of hypertension - Due to hypotension home medications are on hold. - Continue to hold home medications. - Close monitoring # History of hyperlipidemia - Continue statin at home # History depression - We will continue home medications # History of psoriasis - Patient immunosuppressed on Humira at home Disposition: We will continue with physical therapy, IV fluids and continue workup for vertigo. The patient may need to be transferred to a fpc facility if deemed unsafe to go home alone, due to recent left shoulder surgery and vertigo. Pain Evaluation: Adequate Pain Control GI Prophylaxis: Proton Pump Inhibitor VTE Prophylaxis: SCDs (bilateral SCDs), Other (ASA 81 mg daily 2 weeks postop) VTE Mechanical Devices: Intermittant Pneumatic CD Resuscitation Status: CPR: Attempt Resuscitation [place]ham lorenzo MD Nov 13, 2016 21:20
--- NOTE | 2016-11-14 04:04 | NUR ---
Activity/Pain Patient up to BSC with SBA. Noted to be steady on feet. States dizziness/vertigo has improved sine startling Meclizine earlier in the day. Rating pain to left shoulder about a 5/10. Received Tylenol 975mg PO with effective results. Noted to be resting with eyes closed upon reassessment.
[2016-11-14] MEDS: Pantoprazole 20 mg ER24 Tablet PO SCH (05:47)
[2016-11-14 06:02] VITALS: BP 123/81; PULSE 72; RESP 16; O2SAT 98
[2016-11-14 06:28] LABS: Magnesium 2.9 mg/dL (1.6-2.6)
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
[2016-11-14] MEDS: Senna-Docusate 8.6-50 mg Tablet PO SCH (08:30)
--- NOTE | 2016-11-14 10:02 | DRSVH ---
PROCEDURE: CT BRAIN WITHOUT CONTRAST ([id number]) INDICATIONS: Vertigo/Possible cerebellar CVA TECHNIQUE: Noncontrast 4.5 mm thick angled axial sections acquired from the foramen magnum to the vertex, with c oronal reformats. COMPARISON: None. FINDINGS: Image quality: Excellent. CSF spaces: Basal cisterns are patent. No extra-axial fluid collections. The ventricles are symmet rich in size and shape. Brain: No intracranial bleeds or masses. There is mild cerebral volume loss for age, with resultant ventricular and sulcal prominence. There are mild periventricular and deep white matter chronic sma ll vessel ischemic changes. There is intracranial internal carotid artery atherosclerosis. Skull and face: Calvarium and visualized facial bones appear intact, without suspicious lesions. Sinuses: Visualized sinuses and mastoids are clear. IMPRESSION: 1. No acute intracranial abnormalities. No CT findings to expand vertical. MRI is suggested for furth er evaluation if clinically indicated. 2. Mild cerebral volume loss and chronic microvascular ischemic changes. Dictated by: Eron Vera M.D. on 11/14/2016 at 9:54 Approved by: Eron Vera M.D. on 11/14/2016 at 10:00
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
[2016-11-14] MEDS ORDERED: Meclizine Hcl PO (11:04)
[2016-11-14] MEDS ORDERED: ASPI-973 PO (11:04)
[2016-11-14] MEDS ORDERED: DOCU-41 PO (11:04)
[2016-11-14] MEDS ORDERED: OXYC5TAB72 PO (11:04)
[2016-11-14] MEDS ORDERED: Acetaminophen PO (11:25)
--- NOTE | 2016-11-14 12:14 | NUR ---
Social Work: Discharge D: EMR reviewed. Pt is on day 4 of hospitalization. Pt is medically ready for discharge. Pt's dizziness has resolved with medication changes. Pt's CT Scan is negative. Pt has been ambulating steadily to the bathroom in her room. Hospitalist and Ortho spoke with pt today regarding discharging home with services. Pt agreeable. SW met with pt at bedside regarding discharge plan, pt agreeable to discharge today. [facility] is agreeable to servicing pt, F2F provided to Stephen. T/C placed to [facility] regarding pt's discharge, Eliane updated and agreeable to plan. Pt to discharge home with [facility] PT 2x week and roommate to transport via POV. No additional discharge needs identified at this time. A: Pt who whom PT 2x/week has been deemed medically necessary. P: T/C placed to [facility] regarding pt's discharge, Eliane updated and agreeable to plan. Pt to discharge home with [facility] PT 2x week and roommate to transport via POV. No additional discharge needs identified at this time. Adriana Rincon MSW
--- NOTE | 2016-11-14 14:56 | NUR ---
Discharge Patient discharged home. IV DC's and intact. Patient teaching included how to take medications, side effects and monitoring amount of acetaminophen to not exceed more than 4000mg in a 24 hour period. information on vertigo, and the importance of taking a stool softener and increasing water intake while taking narcotics. Discharge instructions given with no questions. Patient and [employer] gathered all belongings. [employer] escorted patient out via W/C.
--- NOTE | 2016-11-14 23:56 | PCM.PNMED ---
Subjective Date of Service Nov 14, 2016 Subjective The patient the patient has no new complaints. Patient is feeling much better after IV hydration and meclizine. Her vertigo is almost gone. Exam Vital Signs Vital Sign - Last Date Time Temp Pulse Resp B/P Pulse Ox O2 Delivery O2 Flow Rate FiO2 11/14/16 06:02 36.9 72 16 123/81 98 Room Air 11/10/16 13:00 8 Intake and Output 11/13/16 11/13/16 11/14/16 Cumulative From/Thru 15:00 23:00 07:00 11/05/16 09:23 - 11/14/16 06:19 Intake Total 556 ml 2307 ml 08356 ml Output Total 800 ml 1400 ml 6001 ml Balance -244 ml 907 ml 4135 ml Intake Oral 556 ml 750 ml 6726 ml IV Total 1557 ml 3410 ml Output Urine Total 800 ml 1400 ml 5700 ml Emesis 200 ml Estimated Blood Loss 101 ml # Bowel Movements 0 3 4 Exam General: Patient is comfortable resting supine in bed. She appears much more comfortable HEENT: Head is atraumatic and normocephalic. Eyes: Pupils are equally round and reactive to light and accommodation. Extraocular muscles are intact. Sclera are white, anicteric. Subconjunctival mucosa is pink. Ears and nose are unremarkable. Oropharynx: There is no mucosal lesions, there is no thrush, there is no pharyngitis. Neck: Is supple, there are no nodes, or masses or tenderness. Chest: Is clear to auscultation and percussion. There are no rales, rhonchi, wheezes or rubs. Heart: Rate, rhythm is regular. There is no new murmur, rub or gallop. Abdomen: Good bowel sounds are present. Abdomen is obese, soft, nontender, no organomegaly or masses were appreciated. Extremities: The left shoulder dressing is clean dry and intact and the left upper extremity is in a postoperative sling. There is no edema, there is no cellulitis, no rash. Neurologic: There are no focal neurological deficits. Cranial nerves II through XII are intact. There are no sensory or motor deficits. However, when patient is up ambulating with physical therapist assisting the patient the physical therapist believes the patient is "at high risk for falls". Psychiatric: Patients mood is calm and she shows no sign of agitation. Genital: Deferred Rectal: Deferred Lab and Diagnostics Result Diagram: 11/13/16 0850 11/14/16 0529 X-Rays, CTs and MRIs PROCEDURE: X-RAY LEFT SHOULDER, MINIMUM TWO VIEWS ([id number]) INDICATIONS: s/p left reverse TSA TECHNIQUE: 2 views of the shoulder were acquired. COMPARISON: None. FINDINGS: Bones: There is a left shoulder reverse polarity arthroplasty. There is expected alignment. No fractures or dislocations. No suspicious bony lesions. Visualized ribs appear intact. Soft tissues: No suspicious soft tissue calcifications. Possible retrocardiac opacity IMPRESSION: Expected alignment a left shoulder arthroplasty. Consolidative retrocardiac opacity possibly aspiration/atelectasis versus pneumonia. Please correlate clinically and if needed further evaluation with dedicated chest radiographs could be performed Dictated by: Regan Melo M.D. on 11/10/2016 at 14:04 Approved by: Regan Melo M.D. on 11/10/2016 at 14:06 PROCEDURE: CT BRAIN WITHOUT CONTRAST ([id number]) INDICATIONS: Vertigo/Possible cerebellar CVA TECHNIQUE: Noncontrast 4.5 mm thick angled axial sections acquired from the foramen magnum to the vertex, with coronal reformats. COMPARISON: None. FINDINGS: Image quality: Excellent. CSF spaces: Basal cisterns are patent. No extra-axial fluid collections. The ventricles are symmetric in size and shape. Brain: No intracranial bleeds or masses. There is mild cerebral volume loss for age, with resultant ventricular and sulcal prominence. There are mild periventricular and deep white matter chronic small vessel ischemic changes. There is intracranial internal carotid artery atherosclerosis. Skull and face: Calvarium and visualized facial bones appear intact, without suspicious lesions. Sinuses: Visualized sinuses and mastoids are clear. IMPRESSION: 1. No acute intracranial abnormalities. No CT findings to expand vertical. MRI is suggested for further evaluation if clinically indicated. 2. Mild cerebral volume loss and chronic microvascular ischemic changes. Dictated by: Eron Vera M.D. on 11/14/2016 at 9:54 Approved by: Eron Vera M.D. on 11/14/2016 at 10:00 Assessment & Plan The patient is a pleasant 71yo white female with hypertension on ACEI, psoriasis on biweekly Humira, patient underwent left shoulder arthroplasty by 11/10. The Hospitalist team was consulted for new onset vertigo that the patient developed postoperatively. # .Postop day #4 from left reverse total shoulder arthroplasty performed on by Dr. Hesham Lubin. As per orthopedic surgery: "Continue nonweightbearing of the left upper extremity using shoulder immobilizer type of arm sling . Patient should come out of sling 3 times a day for active elbow wrist and hand and finger motion only. Left shoulder passive range of motion only: IR to the body, ER 0 with no external rotation of the shoulder, FF to 90. Ice and/or heat as appropriate and elevate arm if possible. Continue ASA 81 mg daily 2 weeks postop. Continue Roxicodone 1-2 tablets every 4-6 hours when necessary pain and Tylenol 975 mg every 8h for pain." # Vertigo, postoperatively. Active, however greatly improved today after meclizine and hydration. - Possibly secondary to a combination of hypotension and postoperative analgesics. - Possibly a complication of anesthesia - Possibly due to benign positional vertigo. However, the Senait Hallpike test performed by PT was inconclusive. - MRI was ordered for a cerebellar cerebrovascular accident. However, the patient could not fit in the MRI machine. - We have checked a CT scan of the brain in a.m. to look for cerebellar cerebrovascular accident and this was unrevealing. Patient could pursue an MRI of the brain as an outpatient, possibly the same MRI machine where she got her shoulder MRI. - We will continue IV fluids - We will start Meclizine when necessary # History of hypertension - Due to hypotension home medications are on hold. - Continue to hold home medications. - Close monitoring # History of hyperlipidemia - Continue statin at home # History depression - We will continue home medications # History of psoriasis - Patient immunosuppressed on Humira at home Disposition: We will continue with physical therapy, IV fluids and continue workup for vertigo. The patient will be discharged home with home health today. Pain Evaluation: Adequate Pain Control GI Prophylaxis: Proton Pump Inhibitor VTE Prophylaxis: SCDs (bilateral SCDs), Other (ASA 81 mg daily 2 weeks postop) VTE Mechanical Devices: Intermittant Pneumatic CD Resuscitation Status: CPR: Attempt Resuscitation Hesham Jensen MD Nov 14, 2016 23:56
== END 2016-11-14 14:54 | disposition home health service (06) | DRG 483 ==
LOC: SAS 08:48 → OSC 14:26 → SAS 14:26 → OSC 14:26
PROVIDERS: ADMIT Orthopaedic Surgery; ATTEND Orthopaedic Surgery
PROC: 0RRK00Z Replacement of Left Shoulder Joint with Reverse Ball and Socket Synthetic Substitute, Open Approach (ICD-10-PCS; principal; 2016-11-10 11:15)
DX: M19.012 Primary osteoarthritis, left shoulder (principal); R42 Dizziness and giddiness